=== PATIENT | male | born 1970 | race Caucasian/White ===

== ENCOUNTER 2017-08-02 13:47 | Observation (INO) | payer OTHER ==
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
[2017-08-02] MEDS ORDERED: Dextrose 5%-Lactated Ringers 1,000 ML IV SCH (15:30)
--- NOTE | 2017-08-02 15:31 | CT ---
CT abdomen and pelvis Technique: Multiple axial sections were obtained from above the dome of the diaphragm inferiorly through the pubic symphysis. Intravenous and oral contrast was not utilized. Visualized lung bases shows nothing acute. Noncontrast appearance of the liver and spleen appears within normal limits. Adrenal glands show no nodule. Pancreas is unremarkable. Aorta shows no aneurysmal dilatation. Small hiatal hernia is incidentally noted. No retroperitoneal adenopathy or mesenteric abnormalities are seen. No pelvic mass or adenopathy is seen. No free fluid is seen. No bowel dilatation is seen. Appendix is seen which appears normal in size. Bone window settings were reviewed which shows mild scattered degenerative change within the spine. Impression: 1. Small fat-containing umbilical hernia. Inflammatory change is seen within the herniated fat. 2. Other incidental findings as noted above. Diagnostic code #3
[2017-08-02] MEDS ORDERED: ceFAZolin 1 GM Vial IVPUSH ONE (16:42)
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
[2017-08-02] MEDS ORDERED: Midazolam 1 MG/ML 2 ML SDV ONE (16:47)
[2017-08-02] MEDS ORDERED: fentaNYL 250 MCG/5 ML SDV ONE (16:47)
[2017-08-02] MEDS ORDERED: Propofol 200 MG/20 ML SDV ONE (16:47)
[2017-08-02] MEDS ORDERED: Lidocaine 1% 4 ML ONE (16:48)
[2017-08-02] MEDS ORDERED: Rocuronium 50 MG/5 ML Vial ONE (16:49)
[2017-08-02] MEDS ORDERED: Succinylcholine/Normal Saline 100 MG/5 ML Syringe ONE (16:49)
[2017-08-02] MEDS ORDERED: Ondansetron 4 MG/2 ML SDV ONE (16:49)
[2017-08-02] MEDS ORDERED: Dexamethasone 4 MG/ML 5 ML MDV ONE (16:49)
[2017-08-02] MEDS ORDERED: Lidocaine 1% with EPINEPHrine 1:100,000 20 ML MDV ONE (16:52)
[2017-08-02] MEDS ORDERED: Bupivacaine 0.5% 30 ML SDV ONE (16:52)
[2017-08-02] MEDS ORDERED: ceFAZolin 2 GM in Premix Bag 1 BAG IV ONE (16:53)
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
[2017-08-02] MEDS ORDERED: ceFAZolin 1 GM Vial ONE (17:40)
[2017-08-02] MEDS ORDERED: Glycopyrrolate 0.2 MG/ML SDV ONE ×2 (17:47→17:57)
[2017-08-02] MEDS ORDERED: Ondansetron 4 MG/2 ML SDV IVPUSH PRN ×2 (18:31→18:54)
[2017-08-02] MEDS ORDERED: fentaNYL 100 MCG/2 ML SDV IVPUSH PRN (18:31)
[2017-08-02] MEDS ORDERED: Meperidine PF 50 MG/ML Syringe IVPUSH PRN (18:31)
[2017-08-02] MEDS ORDERED: diphenhydrAMINE 50 MG/ML SDV IVPUSH PRN (18:31)
--- NOTE | 2017-08-02 18:31 | PCM.POSTAN ---
POST ANESTHESIA ASSESSMENT - MENTAL STATUS Mental Status: Alert, Oriented - VITAL SIGNS Pulse Rate: 79 SaO2: 92 Resp Rate: 16 Blood Pressure: 90/73 Temperature: 37.3 C - RESPIRATORY Respiratory Status: Respiratory Rate WNL, Airway Patent, O2 Saturation Stable, Supplemental Oxygen - CARDIOVASCULAR CV Status: Pulse Rate WNL, Blood Pressure Stable - GASTROINTESTINAL GI Status: No Symptoms - PAIN Pain Score: 0 - POST OP HYDRATION Hydration Status: Adequate & Stable
[2017-08-02] MEDS ORDERED: Acetaminophen/oxyCODONE 325-5 MG Tab PO PRN (18:51)
--- NOTE | 2017-08-02 18:51 | PCM.OPNOTE ---
- General Post-Op/Procedure Note Date of Surgery/Procedure: 08/02/17 Operative Procedure(s): Repair of symptomatic, incarcerated umbilical hernia Findings: Fat-containing umbilical hernia, with defect measuring 1 cm. The fat was reduced back through the defect, and the defect was closed with multiple interrupted sutures. Pre Op Diagnosis: incarcerated umbilical hernia, symptomatic Post-Op Diagnosis: incarcerated umbilical hernia, symptomatic Anesthesia Technique: General ET Tube Primary Surgeon: Dejon Steele Anesthesia Provider: Roscoe Barajas Fluid Replacement, Intraop: 1,000 (cc crystalloid) EBL in mLs: 2 Complications: None Condition: Good Free Text/Narrative:: Indications for surgery: The patient is 47 yo male, h/o obesity (BMI 46) and active smoking, who presents with an acute fat-containing incarcerated symptomatic umbilical hernia. He was consented for urgent umbilical hernia repair with possible mesh. Indications, risks, and benefits were discussed with the patient in detail. Description of procedure: After surgical consent was verified, the patient was brought to the main OR. SCD 's were on and functioning. Anesthesia performed general endotracheal anesthesia without complications. Appropriate padding and straps were placed. Ancef 3 gm IV was administered as perioperative antibiotics. A surgical time- out was performed to verify proper patient, proper site, and proper procedure. Local anesthetic (1% lidocaine with epinephrine and 0.5% Marcaine without) was injected in the subcutaneous space around the anticipated surgical site. A 3 cm supra-umbilical curvilinear incision was made. Dissection was carried down to the underlying fascia. The umbilical stalk was dissected off the underlying fascia. The hernia defect was identified, measuring just approximately 1 cm, with protruding fat that was adhesed along the fascia superiorly. The fat was mobilized and reduced through the hernia defect. The fascial defect was closed with four interrupted 0-Ethibond sutures. After confirming the repair to be intact, the surgical wound was thoroughly irrigated. Hemostasis was ensured. The umbilical stalk was re-attached to the underlying fascia with a 3-0 Vicryl suture. The skin was closed with 4-0 Monocryl in an interrupted fashion. Additional local anesthetic was injected at the surgical site (total used throughout the case was 15 cc). Dermabond was used to seal the incision. Once the Dermabond dried, a non- adherent gauze was placed over the incision. A piece of 2x2 gauze was placed into the umbilicus, and the entire wound covered with Tegaderm dressing. The patient tolerated the procedure well, was brought out of anesthesia, and transported to the PACU in stable condition. At the end of the case, all needle , instrument, and gauze counts were correct. I was presented and scrubbed for the entirety of the case. Dejon Steele M.D., F.A.C.S. General Surgery Pager: [phone]
[2017-08-02] MEDS ORDERED: Morphine 2 MG/ML Syringe IVPUSH PRN (18:54)
--- NOTE | 2017-08-02 18:57 | PCM48HPAN ---
Post Anesthesia Note - EVALUATION WITHIN 48HRS OF ANESTHETIC Vital Signs in Normal Range: Yes Patient Participated in Evaluation: Yes Respiratory Function Stable: Yes Airway Patent: Yes Cardiovascular Function Stable: Yes Hydration Status Stable: Yes Pain Control Satisfactory: Yes Nausea and Vomiting Control Satisfactory: Yes Mental Status Recovered: Yes
--- NOTE | 2017-08-02 19:48 | PCM.DCSUM1 ---
Discharge Summary - Hospital Course Free Text/Narrative:: 47 yo male was admitted in the late afternoon of 02Aug2017 for urgent repair of acutely incarcerated fat-containing umbilical hernia. The patient recovered well post-op. Due to the patient's obesity, smoking, and HERMES, the initial plan was to keep the patient overnight for monitoring. However, patient strongly insists on going home, and can have someone give him a ride and be with him for 24 hours. Will plan for a period of monitoring this evening and discharge home later tonight if patient does well. Post-op care instructions were discussed with the patient. - Discharge Data Discharge Date: 08/02/17 (Discharge home on evening of surgery.) Discharge Disposition: Home, Self-Care 01 Condition: Good - Discharge Diagnosis/Problem(s) (1) Incarcerated umbilical hernia SNOMED Code(s): 587001643 ICD Code: K42.0 - UMBILICAL HERNIA WITH OBSTRUCTION, WITHOUT GANGRENE Status: Acute Current Visit: Yes - Patient Summary/Data Operative Procedure(s) Performed: Repair of symptomatic, incarcerated umbilical hernia Complications: None - Patient Instructions Diet: Regular Diet as Tolerated Activity: No Lifting Over 10 Pounds, No Strenuous Activities (for 6 weeks post- op) Driving: Do Not Drive (when taking narcotic pain medication) Showering/Bathing: May Shower (on post-operative day #2 (04Aug2017). You may remove the tape and gauze dressing on this day prior to showering. No scrubbing the incision. Let soap water run down. Pat dry only.), No Tub Bathing/Swimming Notify Provider of: Fever, Increased Pain, Swelling and Redness, Drainage, Nausea and/or Vomiting Other/Special Instructions: You may use ibuprofen at home as needed for pain control. - Discharge Plan Prescriptions/Med Rec: Acetaminophen/oxyCODONE [Percocet 325-5 MG] 1 - 2 tab PO Q4H PRN #30 tablet PRN Reason: Pain (Moderate 4-6) Docusate Sodium [Colace] 100 mg PO BID #30 cap Home Medications: Home Meds Acetaminophen/oxyCODONE [Percocet 325-5 MG] 1 - 2 tab PO Q4H PRN #30 tablet [Rx] Docusate Sodium [Colace] 100 mg PO BID #30 cap 08/02/17 [Rx] Patient Handouts: Umbilical Hernia, Adult Referrals: Ghulam Verma MD [Physician] - (Make an appointment to see General Surgery in 2-3 weeks.) - Patient Data Vitals - Most Recent: Last Vital Signs Temp 36.7 C 08/02/17 19:05 Pulse 79 08/02/17 18:31 Resp 14 08/02/17 19:05 BP 111/56 L 08/02/17 19:05 Pulse Ox 96 08/02/17 19:05 Weight - Most Recent: 144.696 kg I&O - Last 24 hours: Intake & Output 08/02/17 08/02/17 08/02/17 06:59 14:59 22:59 Intake Total 1000 Balance 1000 Lab Results - Last 24 hrs: Laboratory Results - last 24 hr 08/02/17 08/02/17 Range/Units 14:00 14:00 WBC 10.25 H (4.23-9.07) K/mm3 RBC 5.21 (4.63-6.08) M/mm3 Hgb 13.7 (13.7-17.5) gm/L Hct 42.0 (40.1-51.0) % MCV 80.6 (79.0-92.2) fl MCH 26.3 (25.7-32.2) pg MCHC 32.6 (32.2-35.5) g/dl RDW Std Deviation 43.0 (35.1-43.9) fL Plt Count 395 H (163-337) K/mm3 MPV 9.0 L (9.4-12.3) fl Neutrophils % (Manual) 58 (40-60) % Band Neutrophils % 1 (0-10) % Lymphocytes % (Manual) 30 (20-40) % Atypical Lymphs % 0 % Monocytes % (Manual) 8 (2-10) % Eosinophils % (Manual) 3 (0.8-7.0) % Basophils % (Manual) 0 L (0.2-1.2) Platelet Estimate Adequate Plt Morphology Comment Normal RBC Morph Comment Normal Sodium 142 (136-145) mEq/L Potassium 4.5 (3.5-5.1) mEq/L Chloride 104 (98-107) mEq/L Carbon Dioxide 25 (21-32) mEq/L Anion Gap 17.5 H (5-15) BUN 11 (7-18) mg/dL Creatinine 1.0 (0.7-1.3) mg/dL Est Cr Clr Drug Dosing 95.31 mL/min Estimated GFR (MDRD) > 60 (>60) mL/min BUN/Creatinine Ratio 11.0 L (14-18) Glucose 96 (74-106) mg/dL Calcium 9.0 (8.5-10.1) mg/dL Total Bilirubin 0.3 (0.2-1.0) mg/dL AST 23 (15-37) U/L ALT 33 (16-63) U/L Alkaline Phosphatase 70 (46-116) U/L Total Protein 8.0 (6.4-8.2) g/dl Albumin 3.9 (3.4-5.0) g/dl Globulin 4.1 gm/dL Albumin/Globulin Ratio 1.0 (1-2) Med Orders - Current: Current Medications Diphenhydramine HCl (Benadryl) 25 mg IVPUSH Q6H PRN PRN Reason: Pruritis Fentanyl (Sublimaze) 50 mcg IVPUSH Q5M PRN PRN Reason: Pain Dextrose/Lactated Ringer's (Dextrose 5%-Lactated Ringers) 1,000 mls @ 999 mls/ hr IV ASDIRECTED [facility] Last Admin: 08/02/17 15:39 Dose: 999 mls/hr Meperidine HCl (Demerol) 12.5 mg IVPUSH ONETIME PRN PRN Reason: Shivering Morphine Sulfate (Morphine) 2 mg IVPUSH Q2H PRN PRN Reason: Pain Ondansetron HCl (Zofran) 4 mg IVPUSH ONETIME PRN PRN Reason: Nausea/Vomiting Ondansetron HCl (Zofran) 4 mg IVPUSH Q8H PRN PRN Reason: Nausea/Vomiting Oxycodone/Acetaminophen (Percocet 325-5 Mg) 1 - 2 tab PO Q4H PRN PRN Reason: Pain (moderate 4-6) Discontinued Medications Bupivacaine HCl (Marcaine 0.5%) Confirm Administered Dose 30 ml .ROUTE .STK-MED ONE Stop: 08/02/17 16:53 Last Admin: 08/02/17 17:52 Dose: 7.5 ml Cefazolin Sodium/Dextrose 2 gm (/ Premix) 50 mls @ 100 mls/hr IV ONETIME ONE Stop: 08/02/17 17:22 Lidocaine/Epinephrine (Xylocaine 1% With Epinephrine 1:100,000) Confirm Administered Dose 20 ml .ROUTE .STK-MED ONE Stop: 08/02/17 16:53 Last Admin: 08/02/17 17:52 Dose: 7.5 ml
== END 2017-08-02 23:05 | disposition other institution (70) ==
LOC: JD.ED 13:47 → JD.SDS 16:53 → JD.MS 18:51
PROVIDERS: ADMIT Student in an Organized Health Care Education/Training Program; ATTEND Student in an Organized Health Care Education/Training Program
DX: K42.0 Umbilical hernia with obstruction, without gangrene (principal); E66.9 Obesity, unspecified; F17.210 Nicotine dependence, cigarettes, uncomplicated; G47.33 Obstructive sleep apnea (adult) (pediatric); Z68.42 Body mass index [BMI] 45.0-49.9, adult
CPT/HCPCS: 36415; 49587; 74176; 80053; 85025; 93005; 96360; 99285; J0330; J0690; J1100; J2250; J2405; J3010; J3490; J7042; 93010; 99284-25; G0378; J2704